=== PATIENT | male | born 1945 | race Caucasian/White ===

== ENCOUNTER 2022-05-28 00:25 | Day surgery (SDC) | payer MEDICARE, SELFPAY ==
[2022-05-12 12:42] VITALS: BMI 23.4
--- NOTE | 2022-05-27 13:02 | P.HP_ITS ---
History of Present Illness History of Present Illness Consent: Risks, benefits, and alternatives have been discussed and questions answered. Patient agrees to proceed with procedure. Chief complaint: neoplasm screening Narrative: Georgi Banerjee is a 76 year old male referred for colon cancer screening. He had 2 polyps removed about 8 years ago. Review of Systems Review of Systems: All systems reviewed & are unremarkable except as noted in HPI and below PMFSH Family History Family History Mother Asthma Family history of coronary artery disease Father Family history of kidney disease Sibling Family history of coronary artery disease Social History Social History Social History: Smoking status: Never smoker Second hand tobacco smoke exposure: No Alcohol intake: never Substance use: never Substance use type: does not use Living arrangements: with family Additional living arrangements comments: LIVES WITH DAUGHTER AND HER FAMILY Occupation/Education: retired Additional occupation/education comments: 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 Gender identity (if verbalized by the patient): Male Sexual Orientation (if Verbalized by the Patient): Straight or Heterosexual Spiritual care concerns: No Meds Home Medications and Allergies Home Medications Medication Instructions Recorded Confirmed Type travoprost 0.004 % eye drops 1 drop ophthalmic (eye) QPM 01/31/20 05/28/22 History (Travatan Z) timolol maleate 0.25 % eye drops 1 drp EACH EYE DAILY #15 mL 10/06/21 05/28/22 Rx amlodipine 5 mg tablet See Rx Instructions .Route 10/13/21 05/28/22 Rx .COMPLEX #90 tabs lisinopril 40 mg tablet See Rx Instructions .Route 10/13/21 05/28/22 Rx .COMPLEX #90 tabs levothyroxine 25 mcg tablet See Rx Instructions .Route 04/07/22 05/28/22 Rx .COMPLEX #90 tabs lovastatin 40 mg tablet See Rx Instructions .Route 04/07/22 05/28/22 Rx .COMPLEX #90 tabs Allergies Allergy/AdvReac Type Severity Reaction Status Date / Time No Known Allergies Allergy Verified 05/28/22 06:16 Exam Const: General: alert Orientation/consciousness: patient oriented x3 Resp: Auscultation: clear to auscultation bilaterally Cardio: Rhythm: regular rhythm GI: GI Palp: Yes Soft to palpation and No Tenderness to palpation present (GI) Neuro: General: patient oriented x3 Assessment and Plan Assessment and plan (1) Colon cancer screening: Code(s): Z12.11 - Encounter for screening for malignant neoplasm of colon Status: Acute Assessment and Plan: Colonoscopy with possible biopsy or polypectomy or cautery or injection of substances.
[2022-05-28 06:17] VITALS: BP 159/100; PULSE 102; RESP 20; TEMP 36.1; O2SAT 99; BMI 23.1
[2022-05-28] MEDS: LACTATED RINGERS 1,000 ML 150 ML IV CONT (06:28)
--- NOTE | 2022-05-28 07:18 | P.PNAN_ITS ---
Anes - Initial Pre Proc Eval Procedure: Operation Date: 05/28/22 07:30 Proposed Procedures p Screening Colonoscopy - Jim Negrete MD Date/Time: 05/28/22 07:18 Surgeon: Jim Negrete MD Pre Op Diagnosis: neoplasm screening Patient Data Age: 76 Gender: M Height: 1.7 m Weight: 66.9 kg Last Vital Signs Temp 96.9 F L 05/28/22 06:17 Pulse 102 H 05/28/22 06:17 Resp 20 05/28/22 06:17 BP 159/100 H 05/28/22 06:17 Pulse Ox 99 05/28/22 06:17 O2 Del Method Room Air 05/28/22 06:17 Allergies Allergy/AdvReac Type Severity Reaction Status Date / Time No Known Allergies Allergy Verified 05/28/22 06:16 Home Medications Medication Instructions Recorded Confirmed Type travoprost 0.004 % eye drops 1 drop ophthalmic (eye) QPM 01/31/20 05/28/22 History (Travatan Z) timolol maleate 0.25 % eye drops 1 drp EACH EYE DAILY #15 mL 10/06/21 05/28/22 Rx amlodipine 5 mg tablet See Rx Instructions .Route 10/13/21 05/28/22 Rx .COMPLEX #90 tabs lisinopril 40 mg tablet See Rx Instructions .Route 10/13/21 05/28/22 Rx .COMPLEX #90 tabs levothyroxine 25 mcg tablet See Rx Instructions .Route 04/07/22 05/28/22 Rx .COMPLEX #90 tabs lovastatin 40 mg tablet See Rx Instructions .Route 04/07/22 05/28/22 Rx .COMPLEX #90 tabs Patient hx anesthesia problems: none Family hx anesthesia problems: none Results Review: All pre-operative results and documents have been reviewed as part of the pre- operative evaluation. 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 Gender identity (if verbalized by the patient): Male Sexual Orientation (if Verbalized by the Patient): Straight or Heterosexual Spiritual care concerns: No Anes - Eval Final PreProcedure Day of Procedure 05/28/22 07:18 Patient weight: normal Heart: regular rate and rhythm Lungs: clear to auscultation Airway: Mallampati scale class II Neurological: alert and oriented Last oral intake: >/= 8 hours ASA classification: III Emergent: no Anesthetic plan: proceed Anesthesia type and monitoring: general GIVS and standard monitoring Results Review: All pre-operative results and documents have been reviewed as part of the pre- operative evaluation. Informed Consent: The patient's anesthetic plan and its attendant risks and benefits were discussed with the patient/family/POA. Questions were solicited and answers provided to the satisfaction of the patient/family/POA.
[2022-05-28] MEDS: SIMETHICONE ORAL SUSPENSION 20 MG/0.3 ML 30 ML BOTTLE 0.6 ML IRRIGATION (07:35)
[2022-05-28 07:49] VITALS: BP 117/78; PULSE 81; RESP 15; O2SAT 98
[2022-05-28 07:59] VITALS: BP 122/72; PULSE 88; RESP 18; O2SAT 98
[2022-05-28 08:09] VITALS: BP 115/63; PULSE 75; RESP 20; O2SAT 98
== END 2022-05-28 08:12 | disposition home or self-care (01) ==
PROVIDERS: PCP Family Medicine; Visit Provider Internal Medicine Gastroenterology
PROC: 0DJD8ZZ Inspection of Lower Intestinal Tract, Via Natural or Artificial Opening Endoscopic (ICD-10-PCS; CPT 45378; principal; 2022-05-28 07:30)
DX: Z12.11 Encounter for screening for malignant neoplasm of colon (principal); K57.30 Diverticulosis of large intestine without perforation or abscess without bleeding; K64.8 Other hemorrhoids; Z86.010 Personal history of colon polyps
CPT/HCPCS: G0105; J2704; J7120

== ENCOUNTER 2023-11-07 21:37 | Emergency (ER) | payer MEDICARE, SELFPAY ==
--- NOTE | ~2023-11-07 | CT_ITS ---
CT of the Abdomen and Pelvis: Indication: Abdominal pain, hernia Technique: 2.5 mm axial scans were obtained through the abdomen and pelvis following intravenous adm inistration of 100 cc of Omnipaque 350. Dose reduction technique was used on this scan by utilizing a utomated exposure control and iterative reconstruction technique. The dose-length product (DLP) was 2 53.19 mGy-cm. Findings: Scans through the lung bases are unremarkable. The liver, spleen, pancreas, gallbladder, and adrenal glands are within normal limits. There are prob able parapelvic bilateral renal cysts. Questionable mild increased enhancement of the urothelium of t he left renal pelvis and left ureter. There are atherosclerotic calcifications of the aorta. No lymp hadenopathy. No bowel obstruction or bowel wall thickening. Sigmoid diverticulosis noted. Images through the pelvis were performed. Urinary bladder unremarkable. No pelvic mass seen. No ascit es. There is a small left inguinal hernia containing fat and fluid, which could reflect incarcerated hernia. Impression: Small left inguinal hernia containing fat and fluid. Correlate for incarceration/strangulation. Questionable mild increased enhancement of the urothelium of the left renal pelvis and left ureter. C orrelate clinically and with urinalysis for UTI. Parapelvic renal cysts bilaterally. Reviewed, dictated and finalized at location M. Impression: Small left inguinal hernia containing fat and fluid. Correlate for incarceratio n/strangulation. Questionable mild increased enhancement of the urothelium of the left renal pel vis and left ureter. Correlate clinically and with urinalysis for UTI. Parapelvic renal cysts bilaterally.
[2023-11-07 21:56] VITALS: BP 142/83; PULSE 61; RESP 17; TEMP 36.5; O2SAT 99
[2023-11-07 22:40] LABS: Appearance Urine Clear (Clear); Basophils Percent Auto 0.2 % (0.2-1.2); Bilirubin Urine Negative (Negative); Blood Urine Negative (Negative); Color Urine Yellow (Yellow); Eosinophils Absolute Auto 0.2 K/mm3 (0-0.3); Eosinophils Percent Auto 1.3 % (0-4.4); Glucose Urine UA Negative (Negative); Hemoglobin 14.6 g/dL (14.0-18.0); Immature Granulocyte Absolute 0.05 K/mm3 (0.00-0.031); Immature Granulocyte Percent A 0.4 % (0-0.5); Ketones Urine Negative (Negative); Leukocyte Esterase Ur Negative LEU/UL (Negative); Lymphocytes Absolute Auto 1.48 K/mm3 (0.9-3.2); Lymphocytes Percent Auto 11.7 % (18.3-44.2); Mean Corpuscular HGB Conc 34.8 g/dl (32-36); Mean Corpuscular Hemoglobin 32.9 pg (26-34); Mean Corpuscular Volume 94.6 fl (80-100); Mean Platelet Volume 10.2 fl (7.4-10.4); Monocytes Absolute Auto 1.1 K/mm3 (0.1-0.6); Monocytes Percent Auto 8.4 % (2.6-8.5); Neutrophils Absolute Auto 9.9 K/mm3 (1.3-6.7); Nitrate Urine Negative (Negative); Platelet Count Result 230 k/mm3 (150-375); Protein Urine Negative (Negative); Red Blood Count 4.44 M/mm3 (4.6-6.20); Red Cell Distribution Width 12.5 % (11.5-14.5); Specific Grav Ur 1.013 (1.001-1.035); Urobilinogen Urine 0.2 mg/dL (<2.0); White Blood Count 12.7 K/mm3 (4.5-10.0)
[2023-11-07 22:41] LABS: Add Urine Microscopic? NO
[2023-11-07 22:58] LABS: Alanine Aminotransferase 19 U/L (6-50); Albumin Level 4.4 g/dL (3.5-5.1); Alkaline Phosphatase 57 U/L (38-126); Anion Gap 10 mmol/L (4-12); Aspartate Amino Transferase 23 U/L (17-59); Bilirubin,Total 0.9 mg/dL (0.2-1.3); Blood Urea Nitrogen 19 mg/dL (9-20); Calcium 9.1 mg/dL (8.4-10.2); Carbon Dioxide 25 mmol/L (22-30); Chloride 102 mmol/L (98-107); Estimated CRCL calculation 27 ml/min; Estimated Glomerular Filt Rate 33; Glucose 117 mg/dL (65-110); Lipase 706 U/L (23-300); Potassium 4.2 mmol/L (3.4-5.0); Sodium 137 mmol/L (137-145)
[2023-11-07 23:22] VITALS: BP 153/92; PULSE 58; RESP 18; O2SAT 96
--- NOTE | 2023-11-08 00:29 | ED.ABDPAIN ---
HPI - Abdominal Pain General Chief Complaint: Abdominal Pain Stated Complaint: LLQ pain, bowels locked up. Time Seen by Provider: 11/08/23 00:13 History of Present Illness HPI narrative: 77-year-old male with history of hypothyroidism presents to the emergency department with left lower quadrant pain and concern for hernia. Patient had a left inguinal hernia repair 18 years ago and [place]. States he has had no complications or issues since, except for a couple days ago when he started noticing a bulge in pain to this region. He states the pain is worse when he stands up. He states he works on [employer] for living and is wondering if he may have aggravated his hernia while working. He is also reporting constipation for the past several weeks. States he took laxatives without improvement. His last bowel movement was yesterday morning and normal. He denies to decrease in flatulence, vomiting, fever. Denies other abdominal surgeries. Denies dysuria or hematuria, flank pain. Related Data Allergies Allergy/AdvReac Type Severity Reaction Status Date / Time No Known Allergies Allergy Verified 11/07/23 22:00 Review of Systems Review of Systems: All systems reviewed & are unremarkable except as noted in HPI and below PMFSH Family History Family History Mother Asthma Family history of coronary artery disease Father Family history of kidney disease Sibling Family history of coronary artery disease Social History Social History Social History: Smoking status: Never smoker Second hand tobacco smoke exposure: No Alcohol intake: never Substance use: never Substance use type: does not use Living arrangements: with family Additional living arrangements comments: LIVES WITH DAUGHTER AND HER FAMILY Occupation/Education: retired Additional occupation/education comments: 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 Gender identity (if verbalized by the patient): Male Sexual Orientation (if Verbalized by the Patient): Straight or Heterosexual Spiritual care concerns: No Exam Narrative: GENERAL: Well-appearing, well-nourished, and in no acute distress. HEAD: Normocephalic, atraumatic. EYES: PERRLA and EOMI. ENT: Nares clear, no rhinorrhea or epistaxis. Mucous membranes moist. NECK: Supple. CHEST: Clear to auscultation. No respiratory distress. HEART: Regular rate and rhythm. No murmur heard. Normal peripheral pulses. ABDOMEN: Normoactive bowel sounds. Abdomen soft with a bulge in the left inguinal region that is soft to palpation and easily reduced. No overlying skin changes, no significant tenderness. No CVA tenderness. EXTREMITIES: Normal range of motion. No edema. SKIN: Warm, dry, no rash. NEURO: No focal deficits. Alert and oriented x3 Course Vital Signs Vital signs: Vital Signs Temperature 97.7 F 11/07/23 21:56 Pulse Rate 61 11/07/23 21:56 Respiratory Rate 17 11/07/23 21:56 Blood Pressure 142/83 H 11/07/23 21:56 Pulse Oximetry 99 11/07/23 21:56 Oxygen Delivery Room Air 11/07/23 21:56 Temperature 97.7 F 11/07/23 21:56 Pulse Rate 60 11/08/23 02:11 Respiratory Rate 18 11/08/23 02:11 Blood Pressure 150/81 H 11/08/23 02:11 Pulse Oximetry 95 11/08/23 02:11 Oxygen Delivery Room Air 11/07/23 21:56 MDM - Abdominal Pain MDM Narrative Medical decision making narrative: 77-year-old male history of left inguinal hernia repair eating years ago presents to emergency department with a bulge to his left inguinal region and constipation for the past couple of days. Triage vitals stable. Patient is afebrile and nontoxic appearing. Exam is significant for the above. CBC with leukocytosis of 12.7, no bandemia. Chemistries remarkable for creatinine of 2, normal BUN of 19. Prior creatinine in 2020 was 1.38. UA unre
[2023-11-08] MEDS: ONDANSETRON INJ 4 MG/2 ML VIAL IV PUSH (00:30)
[2023-11-08] MEDS: SODIUM CHLORIDE 0.9% IV 1,000 ML 999 ML IV CONT (00:30)
[2023-11-08 02:03] LABS: Lactic Acid Reflex 1.1 mmol/L (0.7-2.0); Lipase 358 U/L (23-300)
[2023-11-08 02:11] VITALS: BP 150/81; PULSE 60; RESP 18; O2SAT 95
[2023-11-08 03:05] VITALS: BP 129/79; PULSE 64; RESP 16; O2SAT 96
== END 2023-11-08 03:07 | disposition home or self-care (01) ==
PROVIDERS: Emergency Medicine; Emergency Provider Physician Assistant; PCP Family Medicine
DX: K40.90 Unilateral inguinal hernia, without obstruction or gangrene, not specified as recurrent (principal); K59.00 Constipation, unspecified; E03.9 Hypothyroidism, unspecified; Z79.899 Other long term (current) drug therapy
CPT/HCPCS: 36415; 74177; 80053; 81003; 83605; 83690; 85025; 96361; 96374; 99284; J2405; J7030; Q9967

== ENCOUNTER 2023-11-23 09:19 | Outpatient (CLI) | payer MEDICARE, SELFPAY ==
--- NOTE | ~2023-11-23 | US_ITS ---
US renal BI Ordering provider: Everardo Jarvis PA-C History: . N28.1 - Cyst of kidney, acquired . Comparison: None. Technique: Ultrasound bilateral kidneys. Findings: RIGHT KIDNEY: Measures 10.4x 4.6x 4.1 cm in length which is normal in size. No renal cysts. No renal mass or visualized echogenic stones. Otherwise, normal echotexture and contour. Mild hydronephrosis. Normal renal cortical thickness. Pyramids prominence. LEFT KIDNEY: Measures 10.7x 4.9x 3.8 cm in length which is normal in size. No renal cysts. No renal m ass or visualized echogenic stones. Otherwise, normal echotexture and contour. Mild hydronephrosis. N ormal renal cortical thickness. Prominent pyramids. BLADDER: Thickened wall of the gallbladder measuring 0.6 cm. IMPRESSION: Bilateral mild hydronephrotic changes. No stones seen. Reviewed, dictated and finalized at location A.
== END 2023-11-23 09:20 | disposition home or self-care (01) ==
PROVIDERS: PCP Family Medicine; Visit Provider Physician Assistant
DX: R93.89 Abnormal findings on diagnostic imaging of other specified body structures (principal)
CPT/HCPCS: 76775

== ENCOUNTER 2023-11-30 12:25 | Outpatient (CLI) | payer MEDICARE, SELFPAY ==
--- NOTE | 2023-11-30 12:39 | ECG_ITS ---
Test Date: 2023-11-30 12:48:27 Measurements Intervals [place] Rate: 65 P: 66 NM: 176 QRS: 6 QRSD: 99 T: 17 QT: 388 QTc: 405 Interpretive Statements SINUS RHYTHM WITH OCCASIONAL SUPRAVENTRICULAR PREMATURE COMPLEXES No previous ECG available for comparison Electronically Signed On 11-30-2023 14:51:51 CDT by Clifton Valente M.D.
[2023-11-30 13:11] LABS: INR 1.1; Partial Thromboplastin Time 27.7 Seconds (22.3-36.8); Prothrombin Time 14.8 Seconds (11.1-14.7)
== END 2023-11-30 12:26 | disposition home or self-care (01) ==
PROVIDERS: Anesthesiology; PCP Family Medicine; Visit Provider Surgery
DX: Z01.818 Encounter for other preprocedural examination (principal); I12.9 Hypertensive chronic kidney disease with stage 1 through stage 4 chronic kidney disease, or unspecified chronic kidney disease; N18.30 Chronic kidney disease, stage 3 unspecified; K40.91 Unilateral inguinal hernia, without obstruction or gangrene, recurrent
CPT/HCPCS: 36415; 85610; 85730; 86850; 86900; 86901; 93005

== ENCOUNTER 2023-12-01 00:28 | Day surgery (SDC) | payer MEDICARE, SELFPAY ==
[2023-11-30 08:08] VITALS: BMI 22.4
--- NOTE | 2023-11-30 08:32 | PC.NURSE ---
Report to the Outpatient Waiting Room, entrance under the green pavilion located off [facility], at time __7:30AM on date ___11/30/23____. Planned Procedure Time: __9:30AM . Time changes happen often and if your time is changed the preop area will call you the afternoon before. - You and your visitor will be asked to self-screen and do not enter if you have any COVID symptoms. - A mask is optional within the hospital at this time. Patients may have clear liquids (water, carbonated beverages, clear teas, apple juice) until 3 hours prior to surgery with a maximum of 20 ounces. - No food from midnight until time of surgery. Take the following medications with a SIP of water the morning of surgery: ___AMLODIPINE, LEVOTHYROXINE, TIMOLOL EYE DROPS DO NOT STOP ANY OF YOUR OTHER PRESCRIPTION MEDICATIONS PRIOR TO SURGERY ?EXCEPT THE FOLLOWING Medications to discontinue per physician ___HOLD ALL VITAMINS/SUPPLEMENTS STARTING NOW-11/30/23 PER ANESTHESIA Please no make-up, nail kinyarwanda, hairspray, perfume, deodorant, or body powder the day of surgery. No jewelry (including any body piercings) or valuables the day of surgery, leave them at home. Please take a shower or bath the night before, or the morning of, surgery with an antibacterial soap. Wear comfortable, loose fitting clothing. - Jewelry must be removed prior to entering the operating room. Rings and piercings that are not removed may be cut off. - The hospital will not accept responsibility for valuables. - Please leave all valuables, including medications, at home the day of surgery. If you are going home after surgery, a licensed compactor driver must drive you home. - NO public transportation without another adult if you receive anesthesia. - We recommend that an adult stay with you for 24 hours following discharge. - We also recommend that you do not drive, make important decision, drink alcoholic beverages, or take any drugs that were not prescribed by your health care provider for at least 24 hours after your discharge time. Follow any additional instructions given to you from your surgeon. If you or anyone in your household have experienced Covid symptoms in the past week, please notify your surgeon or the nurse liaison at the phone number below for possible testing. Telephone instructions given to ___PATIENT and asked if any additional questions and then verbalized understanding. Patient advised to call surgeon office or pre surgery nurse liaison [phone] if any additional questions.
[2023-12-01] VITALS (8 sets, daily range): BP systolic 128–151; BP diastolic 75–85; PULSE 53–72; RESP 13–20; TEMP 36.3–36.4; O2SAT 98–100; BMI 20.7
[2023-12-01] MEDS: LACTATED RINGERS 1,000 ML 30 ML IV CONT ×2 (08:35→11:08)
[2023-12-01] MEDS: ACETAMINOPHEN 500 MG TABLET 1000 MG PO (08:45)
[2023-12-01] MEDS: KETOROLAC 15 MG/ML VIAL (*BKC) IV PUSH (08:46)
--- NOTE | 2023-12-01 09:06 | WPDANESEPPF ---
Anes - Initial Pre Proc Eval Procedure: Operation Date: 12/01/23 09:30 Proposed Procedures p Laparoscopic Recurrent Left Inguinal Hernia Repair with Mesh, Right Inguinal Hernia Repair with Mesh, Davinci Assisted - Omid Brush DO Date/Time: 12/01/23 09:06 Surgeon: Omid Brush DO Pre Op Diagnosis: recurrent left inguinal hernia, right ing hernia Patient Data Age: 77 Gender: M Height: 1.7 m Weight: 65 kg Allergies Allergy/AdvReac Type Severity Reaction Status Date / Time No Known Allergies Allergy Verified 12/01/23 09:14 Home Medications Medication Instructions Recorded Confirmed Type timolol maleate 0.25 % eye drops 1 drp EACH EYE DAILY #15 mL 10/06/21 12/01/23 Rx latanoprost 0.005 % eye drops 1 drp EACH EYE QPM #2.5 mL 10/08/22 11/30/23 Rx amlodipine 5 mg tablet See Rx Instructions .Route 03/25/23 12/01/23 Rx .COMPLEX #90 tabs lisinopril 40 mg tablet See Rx Instructions .Route 03/25/23 11/30/23 Rx .COMPLEX #90 tabs levothyroxine 25 mcg tablet See Rx Instructions .Route 10/11/23 12/01/23 Rx .COMPLEX #90 tabs lovastatin 40 mg tablet See Rx Instructions .Route 10/11/23 11/30/23 Rx .COMPLEX #90 tabs Beets 1 gummy PO DAILY 11/30/23 12/01/23 History docusate calcium 240 mg capsule 240 mg PO DAILY PRN Constipation 11/30/23 11/30/23 History hydrocodone 5 mg-acetaminophen 325 1 tablet PO Q4H PRN pain #10 tabs 12/01/23 Rx mg tablet Patient hx anesthesia problems: none Family hx anesthesia problems: none Results Review: All pre-operative results and documents have been reviewed as part of the pre-operative evaluation. [facility] Surgical History Surgical History H/O inguinal hernia repair 2005 Family History Family History Mother Asthma Family history of coronary artery disease Father Family history of kidney disease Sibling Family history of coronary artery disease Social History Social History Social History: Smoking status: Never smoker Second hand tobacco smoke exposure: No Alcohol intake: never Substance use: never Substance use type: does not use Do You Feel Safe in your Home?: Yes Lack of Transportation: No Lack of Food: Never True Current Housing: I Have Housing Concerned About Future Housing: No Difficulty Paying Gas/Electric Bills: No Difficulty Paying for Meds: No Currently Unemployed: YES Education: Don't Know Difficulty w/ Childcare or Family Care: No Living arrangements: with family Additional living arrangements comments: DAUGHTER AND HÉCTOR Occupation/Education: retired Additional occupation/education comments: 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 Gender identity (if verbalized by the patient): Male Sexual Orientation (if Verbalized by the Patient): Straight or Heterosexual Spiritual care concerns: No Anes - Eval Final PreProcedure Day of Procedure 12/01/23 09:06 Patient weight: normal Heart: regular rate and rhythm Lungs: clear to auscultation Airway: Mallampati scale class II Neurological: alert and oriented Last oral intake: >/= 8 hours ASA classification: III Emergent: no Anesthetic plan: proceed Anesthesia type and monitoring: general GIVS and standard monitoring Results Review: All pre-operative results and documents have been reviewed as part of the pre-operative evaluation. Informed Consent: The patient's anesthetic plan and its attendant risks and benefits were discussed with the patient/family/POA. Questions were solicited and answers provided to the satisfaction of the patient/family/POA.
--- NOTE | 2023-12-01 09:19 | WPDHPUPDATE1 ---
History and Physical Update Update Date/Time: 12/01/23 09:19 History and Physical has been reviewed, including an updated exam of the patient. There are NO changes in the patient's condition. Risks, benefits, and alternatives have been discussed and questions answered. Patient agrees to proceed with procedure.
[2023-12-01] MEDS: ceFAZolin 2 GM/D5W 50 ML 2 GM/50 ML BAG IVPB (09:40)
[2023-12-01] MEDS: BUPIVACAINE/EPINEPHRINE 0.5% 50 ML VIAL 30 ML INFILTRATE (10:28)
--- NOTE | 2023-12-01 11:00 | W.PM.PROC2 ---
Procedure Note - Detailed Date of Procedure 12/01/23 Pre-op Diagnosis recurrent left inguinal hernia, right ing hernia Post-op Diagnosis Same (Recurrent direct left inguinal hernia, direct right inguinal hernia) Procedure Performed Laparoscopic recurrent left inguinal hernia repair and initial right inguinal hernia repair with mesh, da Jeannine assisted Surgeon Omid Brush, Anesthesia General and Local (0.5% bupivacaine with epinephrine) Indications This is a 77-year-old man who presented with a recurrent left groin bulge that he 1st noticed about 1 month ago. He was noticing some pain and discomfort associated with this. He had a history of an open left inguinal hernia repair in 2005. CT was obtained and this showed evidence of a recurrent left inguinal hernia. He was also noted to have a small right inguinal hernia. This 1 was overall asymptomatic. Discussions were made with the patient about treatment options and decision was made to proceed with robotic assisted laparoscopic recurrent left inguinal hernia repair and right inguinal hernia repair with mesh. Findings The patient was found to have a recurrent direct left inguinal hernia and a direct right inguinal hernia. A robotic transabdominal preperitoneal approach was utilized for repair. Once a wide enough preperitoneal pocket was created, I then placed large 3DMax mid mesh is overlying each myopectineal orifice. Description of Procedure Procedure as well as risks, benefits, and alternatives were discussed with the patient. Written consent was obtained and placed in chart prior to procedure. Patient was brought back to surgical suite. He was placed supine on operating table. Time-out was done to confirm patient and procedure. He was then intubated by Anesthesia Department. His abdomen was prepped and draped in sterile fashion using chlorhexidine prep. 0.5% bupivacaine with epinephrine was infiltrated at each location for incision. A 12 millimeter transverse incision was made just superior to the umbilicus using a 15 blade scalpel. Blunt dissection was carried out down to the linea alba. A vertical incision was made at the linea alba using a 15 blade scalpel. The peritoneum was then bluntly entered. A 12 millimeter trocar was inserted and carbon dioxide insufflation was used to create a pneumoperitoneum. A camera was inserted and the abdominal cavity was inspected. The patient was placed in slight Trendelenburg position. An 8 millimeter incision was made on the right lateral abdomen and an 8 millimeter trocar was inserted under direct visualization. Another 8 millimeter incision was made in the left lateral abdomen and an 8 millimeter trocar was inserted under direct visualization. The robotic arms were brought up to the patient's bedside and secured to the ports. The camera and instruments were inserted. I then moved over to the robotic console and took control of the camera and instruments. After careful inspection of the abdominal cavity, I began scoring the peritoneum along the left lower quadrant using scissors with electrocautery. The preperitoneal plane was entered and this was carefully dissected caudally along the inferior epigastric vessels. Careful dissection with scissors with electrocautery and blunt dissection was used to continue this dissection. I dissected far enough laterally to allow for mesh placement, and also dissected medially to identify the pubic arch and Chriss's ligament. The hernia sac was identified and carefully dissected posteriorly. The cord contents were also identified and the peritoneum was carefully dissected far enough posteriorly to allow for mesh placement. Once an adequate pocket was created, I then placed the mesh within the preperitoneal pocket and carefully unfolded it. The mesh was centered on the hernia defect with adequate overlap circumferentially. The inferior edge of the mesh was inspected to ensure that it was far enough away from t
== END 2023-12-01 13:20 | disposition home or self-care (01) ==
PROVIDERS: PCP Family Medicine; Visit Provider Surgery
PROC: 8E0Y4CZ Robotic Assisted Procedure of Lower Extremity, Percutaneous Endoscopic Approach (ICD-10-PCS; CPT 49650; principal; 2023-12-01 09:30)
DX: K40.91 Unilateral inguinal hernia, without obstruction or gangrene, recurrent (principal); K40.90 Unilateral inguinal hernia, without obstruction or gangrene, not specified as recurrent; I10 Essential (primary) hypertension
CPT/HCPCS: 49651; 49650; S2900; 36415; 85610; 85730; 86850; 86900; 86901; 93005; A9270; C1781; J0461; J0690; J1100; J1596; J1885; J2405; J2704; J3010; J7120

== ENCOUNTER 2024-06-11 09:51 | Emergency (ER) | payer MEDICARE, SELFPAY ==
--- OUTSIDE RECORDS SUMMARY | 2024-06-11 09:53 | XMS_ITS | Continuity of Care Document ---
Author Organization [facility] Address [address] [facility] [address] [place] [address] Phone Care Team Providers Care House Calls Nurse Name Role Phone Donavan Mckeon Unavailable Unavailable Procedures Procedure Date Office/outpatient Visit, Est Visual Field Examination(s) Oct- Office/outpatient Visit, Est Fundus Photography W/ Report Visual Field Examination(s) Oct- Eye Exam, New Patient Corneal Pachymetry Advance Directives Directive Yes / No Effective Date File Name No Information Encounters Encounter Description Practice Location Reason(s) For Visit Diagnoses Date Provider Providers Copied on Encounter Office/outpat ient Visit, Est [facility], [id number] [place] [address] [address], [place], [place], [id number], [place] tel:[phone] [facility] No Information 3-201 0 Mike Go. [address] [facility] , [address], [place], [address], [place]. tel:[phone] [facility], [address], [place], [place], [id number], [place] tel:[phone] [facility] No Information 8-201 0 Mike Go. [address] [facility] [address], [address], [place], [address], [place]. tel:[phone] Referring Provider: Edward Doisy A, [address] [place] [address] [address], [place], [place], [facility]. tel:[phone] Office/outpat ient Visit, Est [facility], [address] [place] [address] [address], [place], [place], [id number], tel:[phone] [facility] No Information 4-201 0 Krishnasamy Ismael. [address] [place] [address] [address], [place], [facility], [place]. tel:[phone] Referring Provider: Ismael stapleton, [address] [place] [address] [address], [place], [place], [facility]. tel:[phone] [facility], [address] [place] [address] [address], [place], [place], [id number], tel:[phone] [facility] No Information 2-200 9 Krishnasamy Ismael. [address] [place] [address], [facility], [place]. tel:[phone] Referring Provider: Ismael stapleton, [address] [place] [address], [place], [facility]. tel:[phone] [facility], [address] [place], [place] [address], [place], [place], [id number], tel:[phone] [facility] No Information Sep 6-200 9 Krishnasamy Ismael. [address] [place] [address], [facility], [place]. tel:[phone] Referring Provider: Ismael stapleton, [address] [place] [address], [facility]. tel:[phone] Family History Family Member Type Diagnosis Age At Onset No Information Payers Payer name Insurance type Covered libertarian ID Authoriza tion(s) No Information Social History Type Description Quantity Date Captured Comments Sex Male Smoking Status No Information Chief Complaint And Reason For Visit No Information Reason For Referral Reason For Referral No Information History Of Present Illness Encounter Date Complaint History Of Prese nt Illness No Information Functional Status Date Functional Assessmen t No Information Instructions Date Instruction Additional Infor mation No Information Assessments Type Assessment Date No Information Patient Care Teams Name Effective Dates (start - stop) Status Members No Information
--- OUTSIDE RECORDS SUMMARY | 2024-06-11 09:53 | XMS_ITS | Clinical Summary ---
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 Pulse 68 03/23/2012 9:08 AM EDI PROGRAMMER Temperature - - Respiratory Rate - - Oxygen Saturation - - Inhaled Oxygen Concentration - - Weight 74.8 kg (165 lb) 03/23/2012 9:08 AM EDI PROGRAMMER Height 170.2 cm (5' 7 ) 03/23/2012 9:08 AM EDI PROGRAMMER Body Mass Index 25.84 03/23/2012 9:08 AM EDI PROGRAMMER Plan of Treatment Health Maintenance Due Date Last Done Comments Hepatitis C 1963 DTaP, Tdap and Td Vaccines ( 1 - Tdap) 1965 Zoster Vaccines (1 of 2) 1996 Pneumococcal Vaccine: 65+ Ye ars (1 of 1 - PCV) 12/07/2011 RSV Immunization or 60+ Years (1 - 1-dose 75+ series) 2021 COVID-19 Vaccine ( - 2023-2 5 season) 2023 Influenza Adult (#1) 2024 Meningococcal B Vaccine Aged Out No l onger eligible based on patient's age to complete this topic Meningococcal Vaccine Aged Out No violet karen eligible based on patient's age to complete this topic RSV Immunizations Under 20 Months Aged Out No longer eligible based on patient's age to complete this topic
[2024-06-11 09:58] VITALS: BP 145/71; PULSE 69; RESP 18; TEMP 36.9; O2SAT 98
--- OUTSIDE RECORDS SUMMARY | 2024-06-11 10:20 | XMS_ITS | Clinical Summary ---
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
--- OUTSIDE RECORDS SUMMARY | 2024-06-11 10:20 | XMS_ITS | Continuity of Care Document ---
Author Organization [facility] Address [address] [facility] [address] [place] [address] Phone Care Team Providers Care Belt Maker Name Role Phone oDnavan Mckeon Unavailable Unavailable Procedures Procedure Date Office/outpatient Visit, Est Visual Field Examination(s) Oct- Office/outpatient Visit, Est Fundus Photography W/ Report Visual Field Examination(s) Oct- Eye Exam, New Patient Corneal Pachymetry Advance Directives Directive Yes / No Effective Date File Name No Information Encounters Encounter Description Practice Location Reason(s) For Visit Diagnoses Date Provider Providers Copied on Encounter Office/outpat ient Visit, Est [facility], [id number] [place] [address] [address], [place], [place], [id number], [place] tel:[phone] SEC [facility] No Information 3-201 0 Mike Go. [address] [facility] , [address], [place], [address], [place]. tel:[phone] [facility], [address], [place], [place], [id number], [place] tel:[phone] [facility] No Information 8-201 0 Mike Go. [address] [facility] [address], [address], [place], [address], [place]. tel:[phone] Referring Provider: Edward Doisy A, [address] [place] [address] [address], [place], [place], [facility]. tel:[phone] Office/outpat ient Visit, Est [facility], [address] [place] [address] [address], [place], [place], [id number], tel:[phone] [facility] No Information 4-201 0 Krishnasamy Ismael. [address] [place] [address] [address], [place], [facility], [place]. tel:[phone] Referring Provider: Ismael stapleton, [address] [place] [address] [address], [place], [facility]. tel:[phone] [facility], [address] [place] [address] [address], [place], [place], [id number], tel:[phone] [facility] No Information 2-200 9 Krishnasamy Ismael. [address] [place] [address], [facility], [place]. tel:[phone] Referring Provider: Ismael stapleton, [address] [place] [address], [place], [facility]. tel:[phone] [facility], [address] [place], [place] [address], [place], [place], [id number], tel:[phone] [facility] No Information Sep 6-200 9 Krishnasamy Ismael. [address] [place] [address], [facility], [place]. tel:[phone] Referring Provider: Ismael stapleton, [address] [place] [address], [facility]. tel:[phone] Family History Family Member Type Diagnosis Age At Onset No Information Payers Payer name Insurance type Covered constitution party ID Authoriza tion(s) No Information Social History [...]
--- NOTE | 2024-06-11 10:50 | ED_ITS ---
HPI - URI/Sore Throat General Chief Complaint: Upper Respiratory Infection Stated Complaint: congestion / cough Time Seen by Provider: 06/11/24 10:01 Source: patient Mode of arrival: ambulatory Limitations: no limitations History of Present Illness HPI Narrative: 78-year-old male presents to [facility] with complaints of 5 day history of productive cough of green colored phlegm, chills, runny nose and congestion for the past 4 days. Patient reports that his significant other currently has similar symptoms. Patient is a nonsmoker. Patient reports that he had similar symptoms last April and required an antibiotic at that time. Patient denies shortness of breath, wheezing, fever, body aches or chills. Patient denies recent travel. Patient has been taking [id number] Zicam, Tylenol and cough syrup with little relief. MD elicited complaint: cough, rhinorrhea and nasal congestion Onset (ago): day(s) (5) Able to tolerate fluids by mouth: Yes Exacerbating factors: nothing Relieving factors: nothing Context: sick contacts Treatments prior to arrival: cold medicine Related Data Home Medications ?Medication ?Instructions ?Recorded ?Confirmed ?Last Taken ?Type Beets 1 gummy PO DAILY 11/30/23 04/13/24 11/30/23 History Allergies Allergy/AdvReac Type Severity Reaction Status Date / Time No Known Allergies Allergy Verified 06/11/24 10:41 Review of Systems Constitutional: Constitutional: Reports chills, Denies fatigue, Denies fever(s) and Denies weakness ENT: Denies dysphagia, Denies vertigo, Denies dizziness, Denies epistaxis, Reports nasal congestion and Denies sore throat Respiratory: Respiratory: Reports cough, Denies dyspnea and Denies wheezing Gastrointestinal: Gastrointestinal: Denies diarrhea, Denies nausea and Denies vomiting Integumentary/Breasts: Skin/Breast: Denies erythema, Denies rash and Denies skin ulcer Neurologic: Denies dizziness, Denies syncope, Denies headache(s) and Denies focal weakness [facility] Surgical History Surgical History H/O left inguinal hernia repair Recurrent LIH repair with mesh, da Jeannine assist 12/01/23 Omid Brush DO H/O inguinal hernia repair L open , L laparoscopic Family History Family History Mother Asthma Family history of coronary artery disease Father Family history of kidney disease Sibling Family history of coronary artery disease Social History Social History Social History: Smoking status: Never smoker Second hand tobacco smoke exposure: No Alcohol intake: never Substance use: never Substance use type: does not use Do You Feel Safe in your Home?: Yes Lack of Transportation: No Lack of Food: Never True Current Housing: I Have Housing Concerned About Future Housing: No Difficulty Paying Gas/Electric Bills: No Difficulty Paying for Meds: No Currently Unemployed: YES Education: Don't Know Difficulty w/ Childcare or Family Care: No Living arrangements: with family Additional living arrangements comments: DAUGHTER AND HÉCTOR Occupation/Education: retired Additional occupation/education comments: 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 Gender identity (if verbalized by the patient): Male Sexual Orientation (if Verbalized by the Patient): Straight or Heterosexual Spiritual care concerns: No Comments At time of signature, I agree with nursing past medical, surgical, social and family history. There is no relevant family history pertinent to the presenting complaint. Exam Const: General: healthy appearing and no acute distress Nutritional Appearance: well nourished Orientation/consciousness: patient oriented x3 Limitations: no limitations HENMT: Head: normal to inspection Ears: external ears normal, TM's normal bilaterally and EAC's normal Face/Nose/Sinus: Normal external nose present Face and sinus: normal facial exam and sinuses nontender Mouth: Yes Normal oral and palatal mucosa present and Yes moist mucous membranes Teeth and gingiva: dentition normal Throat: posterior oropharynx normal and uvula midline Eyes: Conjunctivae: conjunctivae normal Neck: Neck: normal visual inspection Resp: Effort & Inspection: normal respiratory effort and not labored Auscultation: clear to auscultation bilaterally, no crackles, no rales, no rhonchi, no wheezes and diminished lung sounds on the right Cardio: Rate: regular rate Rhythm: regular rhythm Heart sounds: no murmurs Skin: General skin exam: normal color Rashes: no rashes Neuro: General: patient oriented x3 Speech: normal speech Gait exam (Neuro): Normal gait present Extrem: General: normal to inspection Psych: Affect: normal affect Attitude: cooperative Course Course Level of Care: Express Care Visit Vital Signs Vital signs: Vital Signs Temperature 36.9 C 06/11/24 09:58 Pulse Rate 69 06/11/24 09:58 Respiratory Rate 18 06/11/24 09:58 Blood Pressure 145/71 H 06/11/24 09:58 Pulse Oximetry 98 06/11/24 09:58 Oxygen Delivery Room Air 06/11/24 09:58 Temperature 36.9 C 06/11/24 09:58 Pulse Rate 69 06/11/24 09:58 Respiratory Rate 18 06/11/24 09:58 Blood Pressure 145/71 H 06/11/24 09:58 Pulse Oximetry 98 06/11/24 09:58 Oxygen Delivery Room Air 06/11/24 09:58 MDM - URI/Sore Throat MDM Narrative Medical decision making narrative: Mild decreased long sounds noted on the right. Patient declines chest x-ray at this time. Due to symptoms, patient's age and patient declined chest x-ray, patient will be treated with antibiotic at this time. Educated patient proceed to the emergency room if symptoms worsen. Differential Diagnosis Differential diagnosis: Likely otitis media, sinusitis and viral infection Critical Care Time Critical Care Time Critical Care Time: No Discharge Plan Discharge Clinical Impression: Upper respiratory infection Qualifiers: URI type: unspecified URI Qualified Code(s): J06.9 - Acute upper respiratory infection, unspecified Patient Disposition: Home, Self-Care Condition: Stable Instructions: Antibiotic Form, Upper Respiratory Infection (ED) Additional Instructions: Rest Increase fluids Take antibiotic as prescribed Take Tessalon as needed for cough Proceed to the emergency room if symptoms worsen Patient Language: [place] Prescriptions: New azithromycin [Zithromax Z-Raudel] 250 mg tablet See Rx Instructions .ROUTE .COMPLEX Qty: 6 0RF Rx Instructions: For 250 mg dose pack: take 500 mg today (day 1), then 250 mg for 4 days (days 2-5) benzonatate 100 mg capsule 100 mg PO TID PRN (Reason: cough) Qty: 20 0RF No Action latanoprost 0.005 % drops 1 drp EACH EYE QPM Qty: 2.5 0RF timolol maleate 0.25 % drops 1 drp EACH EYE DAILY Qty: 15 0RF Patient Comments: MORNING Beets 1 gummy PO DAILY levothyroxine 25 mcg tablet See Rx Instructions .ROUTE .COMPLEX Qty: 90 2RF Dose Instruction: TAKE 1 TABLET BY MOUTH DAILY Patient Comments: QAM Rx Instructions: TAKE 1 TABLET BY MOUTH DAILY lovastatin 40 mg tablet See Rx Instructions .ROUTE .COMPLEX Qty: 90 2RF Dose Instruction: TAKE 1 TABLET BY MOUTH DAILY Patient Comments: Rx Instructions: TAKE 1 TABLET BY MOUTH DAILY amlodipine 5 mg tablet See Rx Instructions .ROUTE .COMPLEX Qty: 90 2RF Dose Instruction: TAKE 1 TABLET BY MOUTH EVERY DAY Patient Comments: QAM Rx Instructions: TAKE 1 TABLET BY MOUTH EVERY DAY lisinopril 40 mg tablet See Rx Instructions .ROUTE .COMPLEX Qty: 90 2RF Dose Instruction: TAKE 1 TABLET BY MOUTH EVERY DAY Patient Comments: QAM Rx Instructions: TAKE 1 TABLET BY MOUTH EVERY DAY Follow-up/Referrals: Michael Aguilar MD [Primary Care Provider] -
== END 2024-06-11 11:08 | disposition home or self-care (01) ==
PROVIDERS: Emergency Provider Nurse Practitioner Family; PCP Family Medicine
DX: J06.9 Acute upper respiratory infection, unspecified (principal)
CPT/HCPCS: 99213; G0463